=== PATIENT | male | born 1990 | race Caucasian/White ===

== ENCOUNTER 2024-10-11 22:39 | Emergency (ER) | payer OTHER ==
[~2024-10-11] VITALS: Ht 165.1 cm; Wt 64.0 kg
[2024-10-11 23:48] LABS: BASOPHILS % 0.9 % (0.0-2.0); EOSINOPHILS % 12.1 % (0.0-5.0); HEMATOCRIT. 43.3 % (42.0-52.0); HEMOGLOBIN. 14.8 g/dL (14.0-18.0); MEAN CORPUSCULAR HEMOGLOBIN 30.8 pg (28.0-32.0); MEAN CORPUSCULAR HGB CONC 34.1 g/dL (31.0-37.0); MEAN CORPUSCULAR VOLUME 90.2 fL (80.0-94.0); MONOCYTES % 11.3 % (2.0-8.0); NEUTROPHILS % 51.7 % (40.0-76.0); PLATELET 188 x1000/uL (130-400); RED CELL DISTRIBUTION WIDTH 13.3 % (11.6-14.6); WHITE BLOOD COUNT 8.6 x1000/uL (4.5-11.0)
[2024-10-11 23:59] LABS: CHLORIDE 104 mEq/L (98-107); POTASSIUM 4.1 mEq/L (3.5-5.1); SODIUM 139 mEq/L (136-145)
[2024-10-12] LABS: CALCIUM 9.4 mg/dL (8.7-10.4); CARBON DIOXIDE 28 mEq/L (21-32)
[2024-10-12 00:05] LABS: CREATININE 1.1 mg/dL (0.6-1.3); GLUCOSE 143 mg/dL (70-105); UREA NITROGEN BLOOD 16 mg/dL (9-23)
[2024-10-12 00:06] LABS: TROPONIN I HIGH SENSITIVITY 10 ng/L (3.0-53)
[2024-10-12] MEDS ORDERED: METHYLPREDNISOLONE 40MG/ML INJ IV ONE (00:45)
[2024-10-12 01:02] VITALS: PULSE 80; RESP 20; O2SAT 97
[2024-10-12] MEDS: IPRATROPIUM/ALBUTEROL 0.5-3(2.5)MG/3ML NEB HHN ONE (01:02)
[2024-10-12] MEDS: METHYLPREDNISOLONE SOD SUCC 125MG/2ML (ACT-O-VIAL) IM SCH (01:12)
[2024-10-12] MEDS ORDERED: PRED5TAB48 MT (03:49)
[2024-10-12] MEDS ORDERED: ALBU18HF2 IH (03:49)
[2024-10-12 03:59] VITALS: BP 116/70; PULSE 87; RESP 12; TEMP 36.6; O2SAT 97
== END 2024-10-12 04:07 | disposition home or self-care (01) ==
LOC: ER 22:39
DX: J40 Bronchitis, not specified as acute or chronic (principal); Z79.899 Other long term (current) drug therapy
CPT/HCPCS: 80048; 85025; 84484; 36415; 71045; 99285; 94640; 98960; 96372; J2919; Z7610 ×3; 94070